=== PATIENT | male | born 1990 | race African-American/Black ===

== ENCOUNTER 2020-10-26 12:11 | Outpatient (REF) | payer OTHER, SELFPAY | END 2020-10-26 12:12 | disposition home or self-care (01) | LOC: HO.LAB 12:11 | PROVIDERS: PCP Internal Medicine; Visit Provider Internal Medicine | DX: Z20.822 Contact with and (suspected) exposure to COVID-19 (principal) | CPT/HCPCS: C9803; U0003; U0005 ==